=== PATIENT | male | born 1990 | race Caucasian/White ===

== ENCOUNTER → 2017-06-22 18:14 | Outpatient (CLI) | payer OTHER, SELFPAY ==
--- NOTE | 2017-06-22 18:25 | US_ITS ---
STUDY: SCROTUM ULTRASOUND REASON FOR EXAM: Male, 27 years old. Bilateral scrotal swelling and pain worse on the left side for 5 weeks. TECHNIQUE: Ultrasound evaluation of the scrotum was performed with color Doppler and static cooper-scale imaging. COMPARISON: None. FINDINGS: RIGHT TESTICLE INTRATESTICULAR: There is a normal size of the right testicle. The right testicle measures 4.5 x 3 x 2 cm. There is a homogenous echotexture. There is normal arterial and normal venous vascularity. There is no demonstrated right testicular mass or cyst. EXTRATESTICULAR: The epididymis is normal in size. The epididymis head measures 1.3 cm. There is normal vascularity of the epididymis. There is a cyst in the epididymal body measuring about 3.2 cm. There is a small hydrocele. There is no demonstrated varicocele. There is no demonstrated extratesticular mass or cyst. LEFT TESTICLE INTRATESTICULAR: There is a normal size of the left testicle. The left testicle measures 4.2 x 2.1 x 2.4 cm. There is a homogenous echotexture. There is normal arterial and normal venous vascularity. There is no demonstrated left testicular mass or cyst. EXTRATESTICULAR: The epididymis is normal in size. The epididymis head measures 1.4 cm. There is normal vascularity of the epididymis. There is no demonstrated epididymal cystic structure. There is no demonstrated hydrocele. There are prominent extratesticular veins consistent with a varicocele. There is no demonstrated extratesticular mass or cyst. US/Testicular with Arterial Flow IMPRESSION: No evidence of testicular torsion at the time this examination was performed. No focal testicular lesion is identified. Cystic lesion lateral to the right testicle likely representing cyst in the epididymis. Follow-up examination in few months is recommended. Small right hydrocele. Left varicocele. Electronically Signed: Ayad Corral MD at 22:29 EDT Tel , Service support ,
== END ==
PROVIDERS: Family Provider Family Medicine; PCP Family Medicine; Visit Provider Nurse Practitioner Adult Health
DX: N50.819 Testicular pain, unspecified (principal)
CPT/HCPCS: 76870; 93976